=== PATIENT | male | born 1950 | race Caucasian/White ===

== ENCOUNTER → 2016-11-01 | Outpatient (REF) ==
[~2016-11-01] MED LIST: ATENOLOL25 MG PO
== END ==
LOC: WSOH 08:00
DX: Z02.89 Encounter for other administrative examinations (principal)

== ENCOUNTER 2021-05-18 06:56 | Day surgery (SDC) | payer BC ==
[~2021-05-18] VITALS: Ht 177.8 cm; Wt 76.3 kg
[~2021-05-18 06:56] MED LIST changes: -ATENOLOL25 MG PO; +TENORMIN 2525 MG/TAB PO
[2021-05-18 07:10] VITALS: BP 149/85; PULSE 51; TEMP 97.7
[2021-05-18] MEDS ORDERED: CENTRUM SILVER1 CTB PO (07:19)
[2021-05-18] MEDS ORDERED: OMEGA-3 1000 MG1 CAP PO (07:19)
[2021-05-18 09:15] VITALS: BP 114/78; PULSE 54; TEMP 97.6
--- NOTE | 2021-05-18 09:15 | NUR ---
PATIENT BROUGHT BACK TO ENDO ROOM 3 VIA CART. AMBUALTED TO CHAIR WITHOUT DIFFICULTY. PLACED ON MONITORS, VITAL SIGNS STABLE. PATIENT DENIES PAIN OR NAUSEA. ROSALINDA RN AT BEDSIDE TO GIVE REPORT. PATIENT TO BE DRIVEN HOME BY . REQUESTS SPRITE AND MUFFIN. WARM BLANKET PROVIDED, CALL [facility] WITHIN REACH. WILL CONTINUE TO MONITOR. 0979- DR. GAONA AT BEDSIDE TO EXPLAIN RESULTS. PATIENT STATES CAN PICK HIM UP AFTER 1000. VITAL SIGNS STABLE. TOLERATING FOOD AND DRINK. WILL MONITOR. 1000- PATIENT STATES HE FEELS READY TO GO HOME NOW. IV REMOVED. TO GET DRESSED AT THIS TIME. 1010- DISCHARGE INSTRUCTIONS REVIEWED WITH PATIENT ALL QUESTIONS ANSWERED. WILL TEXT WHEN SHE IS DOWNSTAIRS. 1025- PATIENT BROUGHT DOWN TO LOBBY VIA WHEEL CHAIR. WAITING UP FRONT. ALL BELONGINGS IN HAND.
[2021-05-18 09:30] VITALS: BP 144/86; PULSE 52
[2021-05-18 09:45] VITALS: BP 155/89; PULSE 52
[2021-05-18 10:00] VITALS: BP 140/74; PULSE 55
== END 2021-05-18 10:25 | disposition home or self-care (01) ==
LOC: SDCO 06:56
DX: Z12.11 Encounter for screening for malignant neoplasm of colon (principal); D12.2 Benign neoplasm of ascending colon; K64.0 First degree hemorrhoids; K57.30 Diverticulosis of large intestine without perforation or abscess without bleeding; M19.90 Unspecified osteoarthritis, unspecified site; I10 Essential (primary) hypertension; I42.9 Cardiomyopathy, unspecified; R73.01 Impaired fasting glucose; F17.210 Nicotine dependence, cigarettes, uncomplicated; Z90.89 Acquired absence of other organs; Z20.822 Contact with and (suspected) exposure to COVID-19
CPT/HCPCS: J2704; J7030